=== PATIENT | male | born 1970 | race American Indian/Alaskan Native ===

== ENCOUNTER 2017-12-14 21:13 | Emergency (ER) | payer OTHER ==
[2017-12-14 22:16] VITALS: BP 129/73
--- NOTE | 2017-12-14 23:06 | XRay Report ---
FINAL REPORT PROCEDURE: XR ANKLE 3+V RT TECHNIQUE: RIGHT ankle radiographs, AP, lateral, and oblique views. CPT 51310 HISTORY: Right ankle injury with swelling COMPARISON: No prior studies are available for comparison. FINDINGS: Fracture (s) and/or Dislocation(s): None. Alignment: Normal. Joint space(s): Normal. Soft tissues: Normal. Bone mineralization: Normal. Foreign bodies: None. Calcaneal spurring: None. IMPRESSION: Normal Examination.
[2017-12-15] MEDS ORDERED: MOTRIN PO ONE (00:32)
--- NOTE | 2017-12-15 00:36 | Emergency Department Report ---
ED Lower Extremity HPI - General Chief Complaint: Extremity Injury, Lower Stated Complaint: RIGHT LEG INJURY Time Seen by Provider: 12/15/17 00:31 Source: patient Mode of arrival: Ambulatory Limitations: No Limitations - History of Present Illness Initial Comments: 47-year-old -[place] male comes in complaining of right ankle pain. Patient reports that he was playing basketball with his 14-year-old son and he felt something pop on his right ankle. Patient now has pain and swelling to his right Achilles area. Patient reportedly did take some aspirin prior to arrival. Patient reports he has been able to ambulate but with difficulties. Complaint: ankle injury -: hour(s) Injury: Ankle: Right Type of Injury: hyperextension Place: home Severity: severe Improves With: rest Worsens With: weight bearing Context: jumping Associated Symptoms: snap/pop sensation, swelling Treatments Prior to Arrival: cold therapy - Related Data Previous Rx's Medication Instructions Recorded Last Taken Type Ibuprofen [Motrin 800 MG tab] 800 mg PO Q8HR #30 tablet 12/15/17 Unknown Rx Allergies Allergy/AdvReac Type Severity Reaction Status Date / Time No Known Allergies Allergy Unverified 12/14/17 22:08 ED Review of Systems ROS: Stated complaint: RIGHT LEG INJURY Other details as noted in HPI Constitutional: denies: chills, fever Musculoskeletal: joint swelling (Achilles tendon swelling), arthralgia (right ankle pain Achilles) ED Past Medical Hx - Past Medical History Previous Medical History?: No - Surgical History Past Surgical History?: No - Social History Smoking Status: Never Smoker - Medications Home Medications: Home Medications Medication Instructions Recorded Confirmed Last Taken Type Ibuprofen [Motrin 800 MG tab] 800 mg PO Q8HR #30 tablet 12/15/17 Unknown Rx ED Physical Exam - General Limitations: No Limitations General appearance: alert, in no apparent distress - Head Head exam: Present: atraumatic, normocephalic - Eye Eye exam: Present: EOMI - ENT ENT exam: Present: mucous membranes moist - Expanded Lower Extremity Exam Right Hip exam: Present: normal inspection, full ROM. Absent: tenderness Upper Leg exam: Present: normal inspection Knee exam: Present: normal inspection, full ROM Lower Leg exam: Present: normal inspection, full ROM. Absent: tenderness Ankle exam: Present: full ROM, tenderness ( Achilles tendon), swelling ( Achilles tendon) Foot/Toe exam: Present: full ROM, tenderness (Achilles tendon), swelling ( Achilles tendon) Neuro vascular tendon exam: Present: no vascular compromise. Absent: pallor, foot drop Gait: Positive: observed and limited by pain ED Course Vital Signs 12/14/17 22:09 Temperature 98.8 F Pulse Rate 96 H Respiratory 18 Rate Blood Pressure 129/73 O2 Sat by Pulse 98 Oximetry ED Lower Extremity MDM - Radiology Data Radiology results: report reviewed, image reviewed FINAL REPORT PROCEDURE: XR ANKLE 3+V RT TECHNIQUE: RIGHT ankle radiographs, AP, lateral, and oblique views. CPT 52821 HISTORY: Right ankle injury with swelling COMPARISON: No prior studies are available for comparison. FINDINGS: Fracture (s) and/or Dislocation(s): None. Alignment: Normal. Joint space(s): Normal. Soft tissues: Normal. Bone mineralization: Normal. Foreign bodies: None. Calcaneal spurring: None. IMPRESSION: Normal Examination. Transcribed By: [facility] [place] Dictated By: BRENT GALAVIZ Electronically Authenticated By: BRENT GALAVIZ Signed Date/Time: 12/14/172299 DD/ 99 TD/TT: 12/14/172299 - Medical Decision Making Patient has been evaluated by this provider fast track. X-ray of ankle shows normal examination. Physical examination leans towards no Achilles rupture. Patient's been given ibuprofen for pain management. We will discharge patient home on ibuprofen. Critical care attestation.: If time is entered above; I have spent that time in minutes in the direct care of this critically ill patient, excluding procedure time. ED Disposition Clinical Impression: Achilles tendinitis, left leg Disposition: - TO HOME OR SELFCARE Is pt being admited?: No Does the pt Need Aspirin: No Condition: Stable Instructions: Achilles Tendinitis (ED), Ankle Exercises (GEN) Additional Instructions: Take pain medication as prescribed. If symptoms persist or gets worse please follow-up with orthopedist. Prescriptions: Ibuprofen [Motrin 800 MG tab] 800 mg PO Q8HR #30 tablet Referrals: PRIMARY CAREMD [Primary Care Provider] - 3-5 Days MANUEL MONTESIONS MD [Staff Physician] - 3-[address] [facility] [Provider Group] - 3-5 Days
== END 2017-12-15 01:06 | disposition home or self-care (01) ==
LOC: ED 21:13
DX: M76.62 Achilles tendinitis, left leg (principal); X50.1XXA Overexertion from prolonged static or awkward postures, initial encounter; Y93.67 Activity, basketball; Y99.8 Other external cause status; Y92.098 Other place in other non-institutional residence as the place of occurrence of the external cause